=== PATIENT | male | born 1985 | race Caucasian/White ===

== ENCOUNTER 2019-10-14 14:47 | Emergency (ER) | payer OTHER, BC ==
--- NOTE | 2019-10-14 15:06 | ER Document Report ---
ED Medical Screen (RME) - General Chief Complaint: Hand Injury Stated Complaint: HAND INJURY - RIGHT Time Seen by Provider: 10/14/19 14:54 Mode of Arrival: Ambulatory Information source: Patient Notes: 34-year-old male patient presents emergency department chief complaint of right hand pain. Patient reports several days ago he had a laceration to the palmar side of his hand at the base of the third digit. He states he fixed this up himself and he healed well. He reports that today he was hooking his truck and trailer up together when he felt a terrible pain and heard a snap in the center of his hand. He is now unable to move his third digit. Limited range of motion to third digit, cap refill less than 3 seconds, normal sensation, patient unable to flex or extend third digit. I have greeted and performed a rapid initial assessment of this patient. A comprehensive ED assessment and evaluation of the patient, analysis of test results and completion of the medical decision making process will be conducted by additional ED providers. I have specifically instructed the patient or family members with the patient to immediately return to any nursing staff should anything change in the patient's condition or with their chief complaint. TRAVEL OUTSIDE OF THE [place] IN LAST 30 DAYS: No - Related Data Allergies/Adverse Reactions: No Known Allergies Allergy (Unverified 10/14/19 14:56) Home Medications: gabapentin Past Medical History - Social History Chew tobacco use (# tins/day): No Frequency of alcohol use: Occasional Drug Abuse: None Renal/ Medical History: Reports: Hx Kidney Stones - Immunizations Hx Diphtheria, Pertussis, Tetanus Vaccination: Yes Physical Exam - Vital signs Vitals: Temp 98.4 F 10/14/19 14:47 Course - Vital Signs Vital signs: Temp Pulse Resp BP Pulse Ox 98.4 F 10/14/19 14:47
--- NOTE | 2019-10-14 15:20 | RADIOLOGY REPORT (SQ) ---
EXAM DESCRIPTION: HAND LEFT 3 VIEWS IMAGES COMPLETED DATE/TIME: 10/14/2019 3:10 pm REASON FOR STUDY: L hand pain, possible tendon injury COMPARISON: None. EXAM PARAMETERS: NUMBER OF VIEWS: Three views. TECHNIQUE: AP, lateral and oblique radiographic images acquired of the left hand. LIMITATIONS: None. FINDINGS: MINERALIZATION: Normal. BONES: No acute fracture or dislocation. No worrisome bone lesions. JOINTS: No effusion. SOFT TISSUES: No significant soft tissue swelling. No radiopaque foreign body. OTHER: No other significant finding. IMPRESSION: NO FRACTURE. TECHNICAL DOCUMENTATION: JOB ID: [id number] [place]-72 2010 [employer]- All Rights Reserved Reading location - IP/workstation name: [email or web address]
--- NOTE | 2019-10-14 15:48 | ER Document Report ---
ED Hand/Wrist Injury - General Chief Complaint: Hand Injury Stated Complaint: HAND INJURY - RIGHT Time Seen by Provider: 10/14/19 14:54 Mode of Arrival: Ambulatory Notes: HPI: 34-year-old male who states 2 days ago he was accidentally picking up a broken bulb of glass and cut his left hand on the palmar aspect between his third and fourth digit. He states that he used compression with no suturing. He states that the lesion healed well but today he was using his right hand to crank his boat onto the latch when he felt a "pop" in his hand. He states he is unable to fully flex his finger. He denies any redness, swelling, discharge from the laceration site, or fever. He denies any weakness or numbness to any other location. ROS: See HPI Reviewed vital signs and nursing note as charted by RN. PHYSICAL EXAM: CONSTITUTIONAL: Alert and oriented and responds appropriately to questions. Well-appearing; well-nourished EXT: Dry scaly nonerythematous well-healing laceration to the palmar aspect of the left hand. No swelling, erythema, or drainage. Patient's third finger is in a slight flexed position. Very weak flexion strength. All other fingers have excellent flexion strength. All fingers have excellent capillary refill with sensation intact to light touch SKIN: Dried scaly nonnonerythematous well-healing laceration to the palmar aspect of the hand TRAVEL OUTSIDE OF THE [place] IN LAST 30 DAYS: No - Related Data Allergies/Adverse Reactions: No Known Allergies Allergy (Unverified 10/14/19 14:56) Home Medications: gabapentin Past Medical History - General Information source: Patient - Social History Smoking Status: Former Smoker Chew tobacco use (# tins/day): No Frequency of alcohol use: Occasional Drug Abuse: None Family History: Reviewed & Not Pertinent Patient has homicidal ideation: No Renal/ Medical History: Reports: Hx Kidney Stones - Immunizations Hx Diphtheria, Pertussis, Tetanus Vaccination: Yes Physical Exam - Vital signs Vitals: Temp 98.4 F 10/14/19 14:47 Course - Re-evaluation Re-evalutation: 10/14/19 15:47 X-ray as recorded. I am concerned that the patient had a partial tear of his flexor tendon of his third finger a few days ago with a laceration which has now completely torn. I have spoken to the orthopedic surgeon Dr. ingram. He agrees with a volar splint in flexion with follow-up tomorrow. - Vital Signs Vital signs: Temp Pulse Resp BP Pulse Ox 98.4 F 10/14/19 14:47 Discharge - Discharge Clinical Impression: Injury of flexor tendon of left hand Qualifiers: Encounter type: initial encounter Qualified Code(s): S66.802A - Unspecified injury of other specified muscles, fascia and tendons at wrist and hand level, left hand, initial encounter Condition: Good Disposition: HOME, SELF-CARE Additional Instructions: Come back immediately for any increased pain, swelling, redness, fever, vomiting, discoloration of the hand, or any other acute problems. Please make sure that you call your orthopedic surgeon tomorrow morning as we have discussed for further assessment and evaluation. Referrals: RYLEY INGRAM DO [ACTIVE STAFF] - Follow up as needed
== END 2019-10-14 16:07 | disposition home or self-care (01) ==
LOC: ER 14:47
DX: S66.802A Unspecified injury of other specified muscles, fascia and tendons at wrist and hand level, left hand, initial encounter (principal); W25.XXXA Contact with sharp glass, initial encounter; Z87.442 Personal history of urinary calculi
CPT/HCPCS: 99283

== ENCOUNTER 2019-10-16 10:47 | Day surgery (SDC) | payer BC, OTHER ==
[~2019-10-16 10:47] MED LIST: CEFAZOLIN SODIUM 2 GM in DEXTROSE 5%-WATER 100 ML IV PRN
[2019-10-16] MEDS ORDERED: FENTANYL CITRATE INJ/PF 100 MCG/2 ML AMPUL ONE (14:30)
[2019-10-16] MEDS ORDERED: MIDAZOLAM 2 MG/2 ML INJ ONE (14:31)
[2019-10-16] MEDS ORDERED: DEXAMETHASONE SOD PHOSPHATE INJ 4 MG/1 ML VIAL ONE (14:31)
[2019-10-16] MEDS ORDERED: ONDANSETRON HCL INJ/PF 4 MG/2 ML SDV ONE (14:31)
[2019-10-16] MEDS ORDERED: PROPOFOL INJ 200 MG/20 ML VIAL IV ONE (14:31)
[2019-10-16] MEDS ORDERED: BUPIVACAINE HCL 0.5 % INJ/PF 30 ML SDV ONE (17:10)
[2019-10-16] MEDS ORDERED: ONDANSETRON HCL INJ/PF 4 MG/2 ML SDV IV PRN (18:20)
[2019-10-16] MEDS ORDERED: MORPHINE SULFATE 10 MG/ML INJ IV PRN (18:20)
[2019-10-16] MEDS ORDERED: HYDROCODONE/ACETAMINOPHEN 5-325 MG TABLET PO PRN (18:20)
--- NOTE | 2019-10-16 18:21 | Discharge Summary ---
Discharge Summary (SDC) - Discharge Final Diagnosis: Left hand flexor tendon rupture Date of Surgery: 10/16/19 Discharge Date: 10/16/19 Condition: Good Treatment or Instructions: Schedule Follow Up w/ Dr. Javon Pineda @ [facility] for Surgery to be seen in 10-14 days or as scheduled [place]: [place]: [place]: May remove dressing on postop day #3, keep incision covered and dry. Ice and elevate May begin finger range of motion attempting to make full fist. Stool softener of choice when on pain medication. USE OF [id number] IBUPROFEN: Ibuprofen (Advil, Nuprin, Medipren, Motrin IB) is a medication for fever and pain control. In addition, it has anti- inflammatory effects which may be beneficial, especially in the treatment of injuries. It's best to take ibuprofen with food. Persons with ulcer disease or allergy to aspirin should notify their physician of this before taking ibuprofen. Ibuprofen can be given every four to six hours, for a total of four doses daily. Age Pain or fever dose Antiinflammatory dose 6-8 yr 200 mg (1 tab) 200 mg (1 tab) 9-11 yr 200 mg (1 tab) 200-400 mg (1-2 tab) 11-14 yr 200-400 mg (1-2 tab) 400 mg (2 tab) 15-adult 400 mg (2 tab) 600 mg (3 tab) ORAL NARCOTIC MEDICATION: You have been given a prescription for pain control. This medication is a narcotic. It's best taken with food, as nausea can result if taken on an empty stomach. Don't operate machinery or drive within six hours of taking this medication. Do not combine this medicine with alcohol, or with any medication which can cause sedation (such as cold tablets or sleeping pills) unless you get permission from the physician. Narcotics tend to cause constipation. If possible, drink plenty of fluids and eat a diet high in fiber and fruits. Please be aware that prescription narcotics also have the potential for abuse. People become addicted to these medications because of the general sense of wellbeing that they induce. This feeling along with a significant reduction in tension, anxiety, and aggression provides a stimulating seductive quality to these drugs. Once your pain is under control, we encourage you to discard your unused narcotics. Prescriptions: Ketorolac Tromethamine [Toradol 10 mg Tablet] 10 mg PO Q8HP PRN #12 tablet PRN Reason: Hydrocodone/Acetaminophen [[place] 7.5-325 mg Tablet] 1 tab PO Q6 PRN #25 tablet PRN Reason: Discharge Diet: As Tolerated Respiratory Treatments at Home: Deep Breathing/Coughing, Incentive Spirometer Discharge Activity: No Lifting Over 10 Pounds, No Lifting/Push/Pulling Report the Following to Your Physician Immediately: Fever over 101 Degrees, Unusual Bleeding, Redness, Swelling, Warmth, Increased Soreness
--- NOTE | 2019-10-16 18:27 | Operative Report ---
Operative Report DATE OF SURGERY: 10/16/19 PREOPERATIVE DIAGNOSIS: Left Hand Flexor tendon laceration POSTOPERATIVE DIAGNOSIS: Left Middle Finger Zone II FDS Laceration. Left Middle Finger Zone II FDP Laceration <20% OPERATION: Repair Left Middle Finger Zone II FDS Laceration. Debridement Left Middle Finger Zone II FDP Laceration <20% SURGEON: RYLEY INGRAM ANESTHESIA: GA COMPLICATIONS: None ESTIMATED BLOOD LOSS: Minimal PROCEDURE: Indication for above procedure: 34-year-old male who sustained a laceration to his left hand approximately 1 week ago. He states he was doing fine after the injury but then while loading his boat ~he felt a pop in his middle finger since then he had difficulty bending his finger. Patient was seen at the emergency room and x-rays were negative. Upon follow-up we discussed findings including the likelihood of flexor tendon laceration. Risk and benefits of operative versus nonoperative were explained patient verbalized understanding consented for surgical procedure. Procedure In Detail: Patient was seen and evaluated in the preoperative holding area. The LEFT upper extremity was initialized and marked. Patient received 2g of Ancef IV for bacterial prophylaxis. Patient was taken back to the operative room where transferred to the operative table and placed under general anesthesia. Once they were adequately anesthetized a nonsterile tourniquet was placed on the upper extremity. A surgical team debriefing was performed ensuring all instrumentation was available, the surgical procedure was discussed with possible concerns reviewed. The upper extremity was prepped with chlorhexidine and alcohol and draped in a sterile fashion. A timeout was done identifying correct patient, procedure and extremity everyone in attendance agree with this and verbalized no concerns. The extremity was exsanguinated the tourniquet was inflated to 250 mmHg. Patient's laceration was extended proximally and distally with Romi type skin incision. Blunt dissection was performed. Radial and ulnar neurovascular bundles were identified. A1 bee was then released to but not through the A2 bee and palmar aponeurotic bee was released. There was complete laceration of the FDS tendon at zone II with an associated laceration of the FDP which was less than 20% along the ulnar border. No involvement of the neurovascular bundles as noted above. Any peripheral veins within the adipose was coagulated with bipolar cautery. FDP tendon was then carefully debrided but not repaired given the limited involvement. FDS tendon was then secured proximally and distally avoiding manipulation of the cut tendon edge. It was then sutured with a 22-gauge needle. A 6 strand repair was performed utilizing 2 double loaded modified Holm sutures with 40 Fiber Loop. Tendon gapping was minimal and tendon well approximated. 1 cm of depth was obtained with the core suture. Repair was then completed with running epitendinous suture utilizing 6-0 Prolene. Patient had full passive motion and motion with tenodesis without catching or locking. Wound was then copiously irrigated with normal saline. Skin was closed with interrupted 4-0 nylon suture. Wound was dressed with Xeroform for fours and patient was placed in a blocking splint with the wrist at neutral position MP joints at 60 degrees of flexion and IP joints at neutral. Tourniquet was deflated patient had normal peripheral perfusion. Sponge counts, instrument counts, needle counts were correct. Patient was then awoken from anesthesia. Transferred from the operating room table to the operating room stretcher. There was no intraoperative complications patient tolerated procedure well stable to PACU. Postop plan: Patient follow the office in 2 weeks. We will begin occupational therapy 5 days postoperatively as per zone II protocol isolated FDS active protocol.
[2019-10-16 19:29] VITALS: BP 159/87
== END 2019-10-16 17:31 | disposition home or self-care (01) ==
LOC: OROUT 10:47
PROVIDERS: ATTEND Orthopaedic Surgery
DX: S66.123A Laceration of flexor muscle, fascia and tendon of left middle finger at wrist and hand level, initial encounter (principal); S61.213A Laceration without foreign body of left middle finger without damage to nail, initial encounter; W25.XXXA Contact with sharp glass, initial encounter; M79.642 Pain in left hand; Z87.891 Personal history of nicotine dependence
CPT/HCPCS: 87635; 01810; 26356; 11043; J2250; J3490; J0690; J1100; J3010; J2405; J7060; J2704; C9803; 1810

== ENCOUNTER 2019-12-22 21:31 | Emergency (ER) | payer BC ==
[2019-12-22] MEDS ORDERED: ACETAMINOPHEN 325 MG TABLET PO ONE (21:54)
--- NOTE | 2019-12-22 21:55 | ER Document Report ---
ED Medical Screen (RME) - General Chief Complaint: Headache Stated Complaint: HEADACHE Time Seen by Provider: 12/22/19 21:49 TRAVEL OUTSIDE OF THE [place] IN LAST 30 DAYS: No - HPI Notes: 12/22/19 21:53 34 male presents emergency room for sudden onset headache while he was moving a tree limb today, states he "felt a pop in my head" and then had a severe headache, states worst headache of his life. Patient states he has been battling with a headache for the last 2 weeks, he went to urgent care they did give him a Toradol injection, they did advise for him to go to emergency room for further evaluation. Patient states he woke up this morning and his headache had been completely relieved. He states he felt better than he has in the last 2 weeks. He decided to go move some tree limbs, as he was moving a heavy tree limbs when he felt this sudden onset headache and states that the like an explosion in his head. Patient is not on any blood thinners. Has tried BC powder, Tylenol and ibuprofen without relief. States headache is 8 out of 10, throbbing and sharp. Denies any chest pain, shortness of breath, nausea vomiting or diarrhea. Does report photophobia. I have greeted and performed a rapid initial assessment of this patient. A comprehensive ED assessment and evaluation of the patient, analysis of test results and completion of the medical decision making process will be conducted by additional ED providers. PHYSICAL EXAMINATION: GENERAL: Well-appearing, well-nourished and in mild distress HEAD: Atraumatic, normocephalic. EYES: Pupils equal round extraocular movements intact, conjunctiva are normal. NECK: Normal range of motion CV: s1, s2 regular LUNGS: No respiratory distress NEUROLOGICAL: Normal speech, normal gait. - Related Data Allergies/Adverse Reactions: No Known Allergies Allergy (Verified 10/15/19 17:05) Past Medical History - Past Medical History Cardiac Medical History: Denies: Hx Coronary Artery Disease, Hx Heart Attack, Hx Hypertension Pulmonary Medical History: Denies: Hx Asthma, Hx Bronchitis, Hx COPD, Hx Pneumonia Neurological Medical History: Denies: Hx Cerebrovascular Accident, Hx Seizures Renal/ Medical History: Reports: Hx Kidney Stones Musculoskeltal Medical History: Denies Hx Arthritis - Immunizations Hx Diphtheria, Pertussis, Tetanus Vaccination: Yes Physical Exam - Vital signs Vitals: Temp Pulse Resp BP Pulse Ox 98 F 77 18 154/88 H 97 12/22/19 21:46 12/22/19 21:46 12/22/19 21:46 12/22/19 21:46 12/22/19 21:46 Course - Vital Signs Vital signs: Temp Pulse Resp BP Pulse Ox 98 F 77 18 154/88 H 97 12/22/19 21:46 12/22/19 21:46 12/22/19 21:46 12/22/19 21:46 12/22/19 21:46
[2019-12-22 22:43] LABS: ABSOLUTE BASOPHILS # (AUTO) 0.1 10^3/uL (0.0-0.2); ABSOLUTE EOSINOPHILS # (AUTO) 0.3 10^3/uL (0.0-0.6); ABSOLUTE LYMPHOCYTES (AUTO) 5.3 10^3/uL (0.5-4.7); ABSOLUTE MONOCYTES (AUTO) 1.1 10^3/uL (0.1-1.4); BASOPHILS % (AUTO) 0.5 % (0-2); EOSINOPHILS % (AUTO) 1.4 % (0-6); HEMATOCRIT 46.5 % (37.9-51.0); HEMOGLOBIN 16.2 g/dL (13.5-17.0); LYMPHOCYTES % (AUTO) 29.9 % (13-45); MEAN CORPUSCULAR HEMOGLOBIN 30.7 pg (27.0-33.4); MEAN CORPUSCULAR HGB CONC 34.8 g/dL (32.0-36.0); MEAN CORPUSCULAR VOLUME 88 fl (80-97); MONOCYTES % (AUTO) 6.2 % (3-13); PLATELET COUNT 296 10^3/uL (150-450); RED BLOOD COUNT 5.28 10^6/uL (4.35-5.55); RED CELL DISTRIBUTION WIDTH 13.2 % (11.5-14.0); TOTAL CELLS COUNTED % (AUTO) 100 %; WHITE BLOOD COUNT 17.8 10^3/uL (4.0-10.5)
[2019-12-22 23:01] LABS: ALBUMIN 4.3 g/dL (3.5-5.0); ALKALINE PHOSPHATASE 92 U/L (38-126); ANION GAP 6 (5-19); ASPARTATE AMINO TRANSFERASE 31 U/L (17-59); BILIRUBIN,TOTAL 0.4 mg/dL (0.2-1.3); BLOOD UREA NITROGEN 21 mg/dL (7-20); CALCIUM 9.3 mg/dL (8.4-10.2); CARBON DIOXIDE 25 mmol/L (22-30); CHLORIDE 106 mmol/L (98-107); GLUCOSE 128 mg/dL (75-110); POTASSIUM 4.1 mmol/L (3.6-5.0); TOTAL PROTEIN 7.4 g/dL (6.3-8.2)
[2019-12-22 23:04] LABS: INTERNATIONAL RATION (INR) 0.86; PROTHROMBIN TIME 11.9 SEC (11.4-15.4)
[2019-12-22 23:05] LABS: C-REACTIVE PROTEIN < 5.0 mg/L (<10.0); PARTIAL THROMBOPLASTIN TIME 27.6 SEC (23.5-35.8)
[2019-12-22 23:29] LABS: ERYTHROCYTE SEDIMENTATION RATE 7 mm/hr (0-15)
--- NOTE | 2019-12-22 23:59 | RADIOLOGY REPORT (SQ) ---
EXAM DESCRIPTION: CT HEAD WITHOUT IV CONTRAST COMPLETED DATE/TME: 12/22/2019 21:51 CLINICAL HISTORY: 34 years, Male, Worst PAEZ of life, moving tree, felt a "pop"inhead COMPARISON: None. TECHNIQUE: 201 Images stored on PACS. All CT scanners at this facility use dose modulation, iterative reconstruction, and/or weight based dosing when appropriate to reduce radiation dose to as low as reasonably achievable (ALARA). [facility]: Dose Right [facility]: CareDose [facility]: Dose Right [facility]: Teradose 4D [facility]: Smart Technologies LIMITATIONS: None. FINDINGS: The globes are intact. Polyps of the maxillary sinuses. No displaced or depressed skull fracture. No intra or extra-axial hemorrhage. CT is limited for evaluation of acute infarct. No CT evidence for large or territorial acute infarct. No mass. No midline shift IMPRESSION: No acute intracranial abnormality TECHNICAL DOCUMENTATION: Quality ID # [id number]: Final reports with documentation of one or more dose reduction techniques (e.g., Automated exposure control, adjustment of the mA and/or kV according to patient size, use of iterative reconstruction technique) copyright 2011 [employer]- All Rights Reserved
[2019-12-23] MEDS ORDERED: METOCLOPRAMIDE HCL INJ/PF 10 MG/2 ML SDV IV ONE (01:40)
--- NOTE | 2019-12-23 01:42 | ER Document Report ---
ED Headache - General Chief Complaint: Headache >24 hrs old Stated Complaint: HEADACHE Time Seen by Provider: 12/22/19 21:49 Notes: Patient is a 34-year-old male that comes emergency department for chief complaint of a headache that has been going on intermittently for 2 weeks. He states when it first started it felt like there was a "pop" in his head while he was working outside, he states that he had a throbbing headache behind his eyes radiating around to the back of his head. He states that he goes to bed with a headache every day, he states this morning was the first time he woke up without it but it came back at about 10 AM. He states he has not vomiting but he does report photophobia and phonophobia. He states his headache is currently a 4 out of 10 although when he arrived to the emergency department it was approximately a 7 out of 10. He states he was seen in urgent care, given Toradol and "a prescription for migraines", this was yesterday, he states that they also schedule an outpatient MRI which is upcoming. He denies history of headaches previously, he does not take any today medications, he denies smoking, re creational drugs, or heavy alcohol. TRAVEL OUTSIDE OF THE [place] IN LAST 30 DAYS: No - Related Data Allergies/Adverse Reactions: No Known Allergies Allergy (Verified 10/15/19 17:05) Past Medical History - General Information source: Patient - Social History Smoking Status: Former Smoker Frequency of alcohol use: None Drug Abuse: None Lives with: Family Family History: Reviewed & Not Pertinent - Past Medical History Cardiac Medical History: Denies: Hx Coronary Artery Disease, Hx Heart Attack, Hx Hypertension Pulmonary Medical History: Denies: Hx Asthma, Hx Bronchitis, Hx COPD, Hx Pneumonia Neurological Medical History: Denies: Hx Cerebrovascular Accident, Hx Seizures Renal/ Medical History: Reports: Hx Kidney Stones Musculoskeletal Medical History: Denies Hx Arthritis Past Surgical History: Reports: Hx Orthopedic Surgery, Hx Tonsillectomy - Immunizations Hx Diphtheria, Pertussis, Tetanus Vaccination: Yes Review of Systems - Review of Systems Constitutional: No symptoms reported EENT: No symptoms reported Cardiovascular: No symptoms reported Respiratory: No symptoms reported Gastrointestinal: No symptoms reported Genitourinary: No symptoms reported Male Genitourinary: No symptoms reported Musculoskeletal: No symptoms reported Skin: No symptoms reported Hematologic/Lymphatic: No symptoms reported Neurological/Psychological: See HPI Physical Exam - Vital signs Vitals: Temp Pulse Resp BP Pulse Ox 98 F 77 18 154/88 H 97 12/22/19 21:46 12/22/19 21:46 12/22/19 21:46 12/22/19 21:46 12/22/19 21:46 - Notes Notes: GENERAL: Alert, interacts well. No acute distress. HEAD: Normocephalic, atraumatic. EYES: Pupils equal, round, and reactive to light. Extraocular movements intact. ENT: Oral mucosa moist, tongue midline. Oropharynx unremarkable. Airway patent. NECK: Full range of motion. Supple. Trachea midline. No lymphadenopathy. No nuchal rigidity. LUNGS: Clear to auscultation bilaterally, no wheezes, rales, or rhonchi. No respiratory distress. Non-tender chest wall. HEART: Regular rate and rhythm. No murmur ABDOMEN: Soft, non-tender. Non-distended. EXTREMITIES: Moves all 4 extremities spontaneously. No edema, normal radial and dorsalis pedis pulses bilaterally. No cyanosis. BACK: no cervical, thoracic, lumbar midline tenderness. No saddle anesthesia, normal distal neurovascular exam. Moves all extremities in full range of motion. NEUROLOGICAL: Alert and oriented x3. Normal speech. Cranial nerves II through XII grossly intact. Strength 5/5 in all extremities. PSYCH: Normal affect, normal mood. SKIN: Warm, dry, normal turgor. No rashes or lesions noted. Course - Re-evaluation Re-evalutation: On my initial evaluation patient still complaining of a headache although this is improved compared to prior. Patient's history is concerning based on description, however patient is talkative, well-appearing, and has no distress. No nuchal rigidity. Normal neurological exam. Vital signs unremarkable. CBC reviewed and shows leukocytosis with elevation of neutrophils but no bandemia. This is nonspecific given patient's lack of fever, he has no nuchal rigidity, he has no sick symptoms. Chemistry unremarkable. CAT scan from triage reviewed and unremarkable. Patient treated with Reglan and on reevaluation patient sleeping but easily aroused. Patient smiling, states his headache is gone, states he is ready to go home. Based on patient's resolution with treatment, benign evaluation, I do have a low suspicion of subarachnoid hemorrhage, meningitis, or other emergent intracranial abnormality. In addition to this patient has an MRI scheduled with close follow-up with primary care because of his recent headaches. We discussed options, decision was made to give him dexamethasone to see if we can help reduce his frequency of headaches, discussed return precautions in detail, patient states appreciation and agreement. Stable, asymptomatic, well-appearing at time of discharge. - Vital Signs Vital signs: Temp Pulse Resp BP Pulse Ox 97.7 F 70 12 107/65 98 12/22/19 23:38 12/22/19 23:38 12/23/19 04:01 12/23/19 04:00 12/23/19 04:01 - Laboratory Result Diagrams: 12/22/19 22:29 12/22/19 22:29 Laboratory results interpreted by me: 12/22/19 12/22/19 22:29 22:29 WBC 17.8 H Absolute Neuts (auto) 11.0 H Absolute Lymphs (auto) 5.3 H BUN 21 H Glucose 128 H ALT 54 H Discharge - Discharge Clinical Impression: Headache Qualifiers: Headache type: unspecified Headache chronicity pattern: acute headache Intractability: not intractable Qualified Code(s): R51 - Headache Condition: Stable Disposition: HOME, SELF-CARE Additional Instructions: The CAT scan of your head is unremarkable. Your evaluation, symptoms, and resolution with treatment are very suggestive of a migraine. You can take your prescribed medication if needed for headaches in the future. Follow-up with your MRI test. Return if you worsen including returned or severe headache, vomiting, fever, neck stiffness, or any other concerning or worsening symptoms. Forms: Return to Work
[2019-12-23] MEDS ORDERED: DEXAMETHASONE SOD PHOS INJ 10 MG/1 ML VIAL IV ONE (03:18)
[2019-12-23] MEDS ORDERED: DEXAMETHASONE SOD PHOSPHATE INJ 4 MG/1 ML VIAL ONE (04:03)
[2019-12-23 04:17] VITALS: BP 107/65
== END 2019-12-23 04:25 | disposition home or self-care (01) ==
LOC: ER 21:31
DX: R51 Headache (principal); H53.149 Visual discomfort, unspecified; D72.828 Other elevated white blood cell count; Z87.891 Personal history of nicotine dependence
CPT/HCPCS: 99284; 96374; 96375; 36415; 85025; 85652; 85610; 85730; 86140; 80053; 70450; J2765; J1100

== ENCOUNTER → 2020-03-11 | Outpatient (CLI) | payer BC ==
--- NOTE | 2020-03-11 15:05 | NEURO WORKBENCH EEG REPORT ---
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 This EEG was requested for headaches. EEG Interpretation This EEG was recorded in the awake, drowsy, and sleep states. The awake EEG is characterized by a well-organized background with a well-developed and reactive posterior dominant rhythm of 9 Hz. The remainder of the background was characterized by a combination of alpha with some beta frequencies. There was mu present. Drowsiness was characterized by slowing of the background rhythms. Vertex waves and sleep spindles were seen in the midline head regions. Photic stimulation resulted in no significant changes. Hyperventilation resulted in mild generalized background slowing. There were no epileptiform abnormalities. The EKG showed a regular rhythm. EEG Classification * Normal EEG Impression This EEG is within normal limits for age. INTERPRETING NEUROLOGIST: Jessica Cabrera MD, FRCPC Board Certified in Neurology, with special qualification in Child Neurology, and in Clinical Neurophysiology [facility]
== END ==
LOC: NEURO 12:45
PROVIDERS: ATTEND Pediatrics
DX: Q28.3 Other malformations of cerebral vessels (principal); G43.909 Migraine, unspecified, not intractable, without status migrainosus
CPT/HCPCS: 95819